=== PATIENT | female | born 1950 | race Caucasian/White ===

== ENCOUNTER → 2018-05-25 | Outpatient (CLI) | payer MEDICARE ==
[2018-05-25 15:24] LABS: EOS # 0.1 (0.04-0.40); EOS % 2.2 % (1.0-5.0); HEMATOCRIT 41.1 % (37.0-47.0); HEMOGLOBIN 13.2 g/dL (12.5-16.0); LYMPH# 2.3 (1.50-4.00); MEAN CELL VOLUME 95 fl (78-100); MEAN CORPUSCULAR HEMOGLOBIN 31 pg (27-31); MEAN CORPUSCULAR HGB CONC 32 g/dL (33-37); MEAN PLATELET VOLUME 9.8 fl (7.4-10.4); MONO # 0.5 (0.20-0.80); PLATELET COUNT 213 K/mm3 (130-400); RED BLOOD COUNT 4.31 M/mm3 (4.10-5.30); RED CELL DISTRIBUTION WIDTH 13.1 % (11.5-14.5); WHITE BLOOD COUNT 5.9 K/mm3 (4.8-10.8)
[2018-05-25 16:10] LABS: PROTHROMBIN TIME 42.1 SECONDS (9.0-12.0)
== END ==
LOC: LAB 14:56
PROVIDERS: Physician Assistant
DX: S91.002A Unspecified open wound, left ankle, initial encounter (principal); L03.90 Cellulitis, unspecified; B99.9 Unspecified infectious disease; Z79.01 Long term (current) use of anticoagulants

== ENCOUNTER → 2018-05-31 | Outpatient (CLI) | payer MEDICARE ==
[2018-05-31 14:26] LABS: PROTHROMBIN TIME 13.2 SECONDS (9.0-12.0)
== END ==
LOC: LAB 13:41
PROVIDERS: Family Medicine
DX: Z51.81 Encounter for therapeutic drug level monitoring (principal); Z79.01 Long term (current) use of anticoagulants

== ENCOUNTER → 2018-07-15 | Outpatient (CLI) | payer MEDICARE ==
[2018-07-15 19:09] LABS: PROTHROMBIN TIME 38.9 SECONDS (9.0-12.0)
== END ==
LOC: LAB 16:18
PROVIDERS: Family Medicine
DX: Z79.01 Long term (current) use of anticoagulants (principal)

== ENCOUNTER → 2018-07-19 | Outpatient (CLI) | payer MEDICARE | LOC: LAB 12:56 | PROVIDERS: Family Medicine | DX: Z79.01 Long term (current) use of anticoagulants (principal) ==

== ENCOUNTER → 2018-07-26 | Outpatient (CLI) | payer MEDICARE ==
[2018-07-26 09:45] LABS: PROTHROMBIN TIME 19.5 SECONDS (9.0-12.0)
== END ==
LOC: LAB 08:55
PROVIDERS: Family Medicine
DX: Z79.01 Long term (current) use of anticoagulants (principal)

== ENCOUNTER → 2018-08-10 | Outpatient (CLI) | payer MEDICARE ==
[2018-08-10 12:45] LABS: PROTHROMBIN TIME 26.3 SECONDS (9.0-12.0)
== END ==
LOC: LAB 12:20
PROVIDERS: Family Medicine
DX: Z51.81 Encounter for therapeutic drug level monitoring (principal); Z79.01 Long term (current) use of anticoagulants

== ENCOUNTER → 2018-08-24 | Outpatient (CLI) | payer MEDICARE | LOC: LAB 11:41 | DX: E11.621 Type 2 diabetes mellitus with foot ulcer (principal); L97.309 Non-pressure chronic ulcer of unspecified ankle with unspecified severity; Z79.01 Long term (current) use of anticoagulants ==

== ENCOUNTER → 2019-05-31 | Outpatient (CLI) | payer MEDICARE ==
[2019-05-31 09:45] LABS: PROTHROMBIN TIME 23.1 SECONDS (9.0-12.0)
== END ==
LOC: LAB 09:02
PROVIDERS: Family Medicine
DX: Z51.81 Encounter for therapeutic drug level monitoring (principal); Z79.01 Long term (current) use of anticoagulants

== ENCOUNTER → 2019-08-22 | Outpatient (CLI) | payer MEDICARE ==
[2019-08-22 08:36] LABS: PROTHROMBIN TIME 21.9 SECONDS (9.0-12.0)
== END ==
LOC: LAB 08:09
PROVIDERS: Family Medicine
DX: Z51.81 Encounter for therapeutic drug level monitoring (principal); Z79.01 Long term (current) use of anticoagulants